=== PATIENT | male | born 1945 | race African-American/Black ===

== ENCOUNTER 2019-10-26 03:29 | Observation (INO) ==
[2019-10-26] MEDS ORDERED: CARDIZEM IV ONE ×2 (03:39→03:55)
[2019-10-26 03:57] LABS: BASO# 0.02 X1000 (0.0-0.2); BASO% 0.2 % (0.0-0.8); EOS# 0.18 X1000 (0.0-0.7); EOS% 1.9 % (0.0-10.0); HEMATOCRIT 47.5 % (42.0-52.0); HEMOGLOBIN 15.3 g/dL (14.0-18.0); LYMPH# 3.94 X1000 (1.2-3.4); LYMPH% 41.7 % (20.5-51.1); MCH 28.7 PG (27-31); MCHC 32.2 g/dL (33-37); MONO# 0.68 X1000 (0.11-0.59); MONO% 7.2 % (1.7-9.3); MPV 9.7 FL (7.4-10.4); NEUT# 4.63 X1000 (1.4-6.5); PLT 277 X1000 (130-400); RBC 5.34 XMIL (4.7-6.1); RDW 14.1 % (11.5-14.5); WBC 9.45 X1000 (4.8-10.8)
--- NOTE | 2019-10-26 04:05 | PROVIDER DOCUMENTATION ---
HPI-General Adult - General Chief Complaint: Shortness of Breath Stated Complaint: copd exac Time Seen by Provider: 10/26/19 03:32 Source: patient, EMS Allergies/Adverse Reactions: Patient Allergies Allergy/AdvReac Type Severity Reaction Status Date / Time No Known Allergies Allergy Verified 01/02/19 11:57 Home Medications: Home Medication List Medication Instructions Recorded Confirmed Last Taken Type Amlodipine Besylate 10 mg PO DAILY 09/30/12 10/26/19 09/20/16 10:15 History Losartan/Hydrochlorothiazide 100-25 mg PO DAILY 09/30/12 10/26/19 09/20/16 10:15 History [Losartan-Hctz 100-25 mg Tab] Fluticasone/Salmeterol [Advair 1 each IH BID PRN 11/27/14 10/26/19 09/20/16 10:15 History 250-50 Diskus] Albuterol Sulfate [Albuterol 8.5 gm INHALATION Q4-6H PRN PRN #1 01/02/19 10/26/19 Unknown Rx Sulfate Hfa] hfa.[email or web address].[email or web address] Levothyroxine [Synthroid] 1 tab PO DAILY 01/02/19 10/26/19 Unknown History Albuterol Sulfate [Proair Hfa] 90 mcg INH PRN PRN 10/26/19 10/26/19 Unknown History Fluticasone/Umeclidin/Vilanter 1 ea INHALATION PRN PRN 10/26/19 10/26/19 Unknown History [Trelegy Ellipta 100-62.5-25] Metoprolol [Lopressor] 50 mg PO BID 10/26/19 10/26/19 Unknown History Nebivolol [Bystolic] 5 mg PO DAILY 10/26/19 10/26/19 Unknown History Rivaroxaban [Xarelto] 10 mg PO DAILY 10/26/19 10/26/19 Unknown History - History of Present Illness -Gen Adult Nature of Presenting Problems: 74 y/o M presents to the ED with EMS complaining of dyspnea. States he awoke suddenly and felt like he could not breathe. Since the onset has had a mild cough, no chest pain, no recent illness. Give [address] Review of Systems - Adult - REVIEW OF SYSTEMS - ADULT ROS:: limited per condition Constitutional: denies: chills, fever Cardiovascular: denies: chest pain Respiratory: reports: cough, shortness of breath. denies: chronic cough, excessive sputum production Musculoskeletal: denies: back pain All Other Systems: Reviewed and Negative Past History - Adult - PAST MEDICAL HISTORY-ADULT Review of Records: reports: Old Records Reviewed, Nursing Assessment Review, Medications Reviewed, Social history reviewed & non-contributory. Major Childhood Illnesses: reports: denies history Cardiovascular: reports: HTN, hyperlipidemia Respiratory: reports: denies history Gastrointestinal: reports: denies history Obstetrical/Gynecological: reports: denies history Genitourinary: reports: other (BPH) Musculoskeletal: reports: denies history Neurological: reports: denies history Endocrine/Immune: reports: thyroid disorder (goiter) Other Conditions: reports: other (frequent epistaxis) - PRIOR SURGERIES/PROCEDURES Surgical/Procedure History: reports: appendectomy, other (thyroidectomy) - IMMUNIZATION STATUS Childhood Immunizations: See Nurse Assessment Flu Vaccine: See Nurse Assessment - FAMILY HISTORY Family History: reviewed, not pertinent Physical Exam-General - PHYSICAL EXAM-ADULT Initial Vital Signs Reviewed: Yes - CONSTITUTIONAL General Appearance: alert, severe distress - EYES Eyes: PERRL/EOMI - HEAD, EARS, NOSE, MOUTH & THROAT HENMT: normocephalic/atraumatic, moist mucous membranes, normal ENT inspection - NECK Neck: non-tender, full range of motion, supple - RESPIRATORY Respiratory: chest non-tender, rales (BL in all medina) - CARDIOVASCULAR Cardiovascular: no edema, JVD, tachycardia, irregularly irregular - GASTROINTESTINAL (ABDOMEN) Abdominal Exam: non tender, soft - MUSCULOSKELETAL Back Exam: normal inspection, no CVA tenderness, no vertebral tenderness Extremity: non-tender, normal gait, no pedal edema - SKIN Integumentary: normal color, normal turgor, warm/dry - NEUROLOGIC Neurologic: grossly normal, no motor/sensory deficits - PSYCHIATRIC Psych/Mental Status: normal mood/affect, normal thought content, normal thought process, oriented x 3 Progress - PLAN OF CARE/RESULTS Progress/Plan/Lab Results: Vital Signs - 8 hr 10/26/19 03:39 Temperature 98.0 F Pulse Rate 172 H Respiratory Rate 35 H Blood Pressure 193/95 O2 Sat by Pulse Oximetry 98 Laboratory Results - last 24 hr 10/26/19 03:43 WBC 9.45 RBC 5.34 Hgb 15.3 Hct 47.5 MCV 89.0 MCH 28.7 MCHC 32.2 L RDW Std Deviation 14.1 Plt Count 277 MPV 9.7 Immature Gran % (Auto) 0.0 Neut % (Auto) 49.0 Lymph % (Auto) 41.7 Dent % (Auto) 7.2 Eos % (Auto) 1.9 Baso % (Auto) 0.2 Immature Gran # (Auto) 0.00 Neut # (Auto) 4.63 Lymph # (Auto) 3.94 H Dent # (Auto) 0.68 H Eos # (Auto) 0.18 Baso # (Auto) 0.02 Orders Category Date Time Status IV Insertion ORDERED Care 10/26/19 03:39 Completed cxr [CHEST-1 VIEW] [RAD] Stat Exams 10/26/19 03:39 Ordered BASIC METABOLIC PANEL [CHEM] Stat Lab 10/26/19 03:43 Received CBC WITH DIFF [HEME] Stat Lab 10/26/19 03:43 Completed PRO B-NATRIURETIC PEPTIDE Stat Lab 10/26/19 03:43 Received TROPONIN T HIGH SENSITIVITY Stat Lab 10/26/19 03:43 Received Diltiazem [Cardizem] Med 10/26/19 03:39 Discontinued 25 mg IV NOW ONE Diltiazem [Cardizem] Med 10/26/19 03:55 Discontinued 25 mg IV NOW ONE EKG [EKG] Stat Ther 10/26/19 03:39 Ordered severe dyspnea with markedly accelerated afib no history of afib or CHF. 100% pulse ox on NRB but continues to be distressed. Treated with diltizem and started on bi-pap with improvement in distress and wob and reduction in HR from 180s to 140s. BP remains stable. Additional dilitizem given and HR reduced to 90's. Will further evaluate for causes including but not limited to ACS, new onset afib, new onset CHF, electrolyte imbalance. Result Diagrams: 10/26/19 03:43 10/26/19 03:43 - REASSESSMENT Reassessment #1 Status: improving (HR improved and dyspnea improved with diltiazem and bi-pap. Labs unremarkable. Symptoms likely due to new onset Afib with new onset CHF. Will admit for further evaluation and treatment. Discussed case with Dr. Tigre rendon, hospitalist, who will see and admit pt.) - EKG 1 Time of EKG reading by physician:: 03:38 EKG Read and Signed by:: Emeli Leonardo EKG Interpretation (*Must complete 3 of following elements*): Abnormal (Atrial fibrillation, rate 174, no acute st changes) - XRAY 1 XRAY Study: Chest Impression: Abnormal (Moderate pulmonary edema, no infiltate, no ptx) Departure - Departure Date of Disposition Decision: 10/26/19 Time of Disposition Decision: 05:02 DIAGNOSIS: New onset a-fib, New onset of congestive heart failure Disposition: ADMITTED INPATIENT 09 Certified Medical Emergency: Emergent Condition: Serious Referrals and Follow-Ups: Jl Cano MD [Primary Care Provider] - - Critical Care Note This patient required my direct & personal management of CC.: Yes Total Time (mins): 45 Critical Care Statement: This patient required my direct personal management to treat or rule out processes, the absence of which, could potentiallly result in sudden, clinically significant life or limb threatening deterioration. Attestation - Physician/ CHRISTOPH Attestation Patient care was provided by Advanced Practice Provider:: No The physician spent face to face time with patient:: Yes Advanced Practice Provider documentation review:: Supervising physician onsite and consulted in the evaluation and care of this patient. The physician did have a face to face encounter with the patient.
[2019-10-26 04:17] LABS: AGAP 13; BUN 22 mg/dL (8-22); CALCIUM 8.9 mg/dL (8.8-10.2); CHLORIDE 104 mmol/L (98-107); COSMO 295; CREATININE 1.1 mg/dL (0.7-1.2); ESTIMATED GFR > 60; GLUCOSE 158 mg/dL (70-104); POTASSIUM 3.3 mmol/L (3.5-5.1); SODIUM 145 mmol/L (136-145); TCO2 28 mmol/L (25-35)
[2019-10-26] MEDS ORDERED: LASIX IV ONE ×2 (05:21→05:42)
[2019-10-26] MEDS ORDERED: LASIX ONE (05:48)
--- NOTE | 2019-10-26 05:51 | EKG Report ---
Test Performed on : 10/26/2019 03:38:31 AM Test Reason : dyspnea Blood Pressure : / mmHG Vent. Rate : 174 BPM Atrial Rate : 220 BPM P-R Int : 000 ms QRS Dur : 080 ms QT Int : 264 ms P-R-T Axes : 000 -35 119 degrees QTc Int : 449 ms Atrial fibrillation. with rapid ventricular response. Left axis deviation Moderate voltage criteria for LVH, may be normal variant ST & T wave abnormality, consider anterolateral ischemia Abnormal ECG When compared with ECG of 23-JAN-2019 11:24, Significant changes have occurred Unconfirmed Result
[2019-10-26] MEDS ORDERED: KLOR-CON PO ONE (05:53)
--- NOTE | 2019-10-26 06:05 | HISTORY AND PHYSICAL ---
ADDENDUM: Mr. Rafael Eller is a patient with COPD, hypertension, atrial fibrillation, and hypothyroidism, who comes in complaining of sudden shortness of breath waking them while asleep. He said over the last few days he has been having dyspnea on exertion with mild lower extremity swelling. He was brought into the ER, and it was noted that his heart rate was greater than 140. He was given some breathing treatments on route. He was then given a total of 50 mg of IV push Cardizem which brought his rate down to the 80s now. He is now back down from atrial fibrillation RVR down to normal sinus rhythm. He feels better. He was put on BiPAP too. His chest film showed slight increased vascular markings. We have given him 40 mg of Lasix now. He will continue with Cardizem 60 mg q.6 which could later be switched to either Cardizem 180 or 240 mg daily at the discretion of the rounding physician or key account coordinator. This will also replace amlodipine which he has been taking. He has had an echocardiogram done in July of last year, and it showed an EF of 55% with mild LVH and pulmonary pressures of 40 mmHg. The patient will continue with Lasix 20 mg q.12 breathing treatments. Also, continue with beta blockers which he takes and Xarelto. Consult Dr. Rojas to see the patient. A TSH and magnesium have been ordered and needs to be followed. O2 administration will be given. Repeat BMP and chest film PA and lateral in the morning tomorrow. cc: Biju Lai MD
[2019-10-26] MEDS: ATROVENT NEB INH SCH ×4 (06:28→22:43)
[2019-10-26] MEDS: XOPENEX NEB INH SCH ×4 (06:28→22:42)
[2019-10-26] MEDS ORDERED: NS NEB INH SCH (06:30)
--- NOTE | 2019-10-26 06:34 | Diag Imaging Result Doc PS360 ---
CHEST-1 VIEW - 10/26/2019 INDICATION: dyspnea COMPARISON: 07/01/2019 FINDINGS: Stable left hemidiaphragm elevation with some adjacent atelectasis. Otherwise no significant infiltrates. Heart size is normal. No pneumothorax or pleural effusion. IMPRESSION: No acute disease or change from prior. Electronically signed by Oli Espinosa 10/26/2019 6:31 AM
[2019-10-26] MEDS ORDERED: ZOFRAN IV PRN (07:47)
[2019-10-26] MEDS ORDERED: TYLENOL PO PRN (07:47)
[2019-10-26] MEDS ORDERED: CARDIZEM PO SCH (08:00)
[2019-10-26] MEDS: TOPROL XL PO SCH (08:45)
--- NOTE | 2019-10-26 08:55 | HISTORY AND PHYSICAL ---
PRIMARY CARE PROVIDER: Jl Cano MD DIRECTOR OF HEALTHCARE SYSTEMS: Jad Rojas MD CHIEF COMPLAINT: Shortness of breath. HISTORY OF PRESENT ILLNESS: Mr. Eller is a 74-year-old male with a past medical history of COPD, hypertension, hyperlipidemia, atrial fibrillation, hypothyroidism, obstructive sleep apnea, and anxiety. The patient presented to the ER after complaining of a sudden onset of shortness of breath, stating it woke him up from a sleep. He complains that over the last few days that he has been having some exertional dyspnea and some mild lower extremity swelling. He stated that he has not had a cough until after he woke up this morning with his shortness of breath episode. He denies any recent illnesses, upper respiratory infection, pneumonia, or being around anyone who is sick. He denies any fever, body aches, or chills. He denies any dizziness, lightheadedness, headache, chest pain, palpitations. He denies any abdominal pain or distention. He denies any nausea, vomiting, or diarrhea. He states he does not have any known hematochezia or melena, but does not regularly look at his stools. He denies any dysuria, urinary frequency, or decreased urine output. He does have some trace edema noted in bilateral lower extremities, but other than this he did not complain of any other pain in his extremities. The patient states he currently does take metoprolol succinate extended release 100 mg once daily for his atrial fibrillation and does take Xarelto for anticoagulation. He did have an echocardiogram and stress test done in July. Echocardiogram did show an EF of 55% with mild LVH and pulmonary pressures of 40. His stress test was negative, but he was noted to have a few runs of atrial fibrillation during his stress test. Upon arrival to the ER, he was placed on BiPAP. Unfortunately, I do not know what his room air saturation was on the scene at the time of EMS arrival. His first documented oxygen saturation at our facility was 98% on a nonrebreather. He was noted to have a heart rate of 172, respirations 35, blood pressure was 193/95 with a MAP of 104. EKG did show atrial fibrillation with rapid ventricular response at a rate of 174. In the ER, he was given 2 IV doses of Cardizem for a total of 50 mg. At this time, his heart rate has improved. It is 80 and a sinus rhythm. The patient did have a brief episode during the time of my examination where his heart rate jumped up to 150. This was atrial fibrillation, though he did quickly convert back to a sinus rhythm. He has been able to be removed off BiPAP. We have placed him back on nasal cannula. The patient is complaining of feeling like something is stuck in his throat, though his posterior pharynx does not appear to have any acute abnormalities. There is no erythema noted. There is no overt JVD noted either. The patient did have some very slight crackles noted in bilateral bases, and he did have expiratory wheezing present. He did receive a breathing treatment en route. We will perform another nebulizer treatment, but we will use Xopenex and Atrovent. Chest x-ray did show possible increased vascular markings. He will be placed in the PVC unit for further treatment and evaluation of his atrial fibrillation, COPD, and acute congestive heart failure. PAST MEDICAL HISTORY: 1. Hypertension. 2. Hyperlipidemia. 3. COPD. 4. Anxiety. 5. Prostate problems. 6. Obstructive sleep apnea with CPAP nightly. 7. Atrial fibrillation. 8. History of thyroidectomy secondary to a goiter [place] [address] Edge. PAST SURGICAL HISTORY: 1. Appendectomy. 2. Prostate surgery. 3. Thyroidectomy. SOCIAL HISTORY: The patient is a former smoker. He did start smoking at age 15. He quit smoking 20 years ago. There is no known alcohol or illicit drug use. He is . His was present at bedside. FAMILY HISTORY: Positive for his mother having history of breast cancer. To his knowledge his father did not have any medical issues. He does have 1 sister who has a history of lupus and diabetes mellitus. He has a brother who has diabetes mellitus as well. He had another brother who has had leg amputation. ALLERGIES: Patient has no known allergies. HOME MEDICATIONS: 1. Albuterol HFA inhaler 1 to 2 puffs every 4-6 hours p.r.n. as needed. 2. Amlodipine 10 mg p.o. daily. 3. Trilogy Ellipta 100/62.5/25 one puff inhaled daily. 4. Synthroid 125 mcg p.o. daily. 5. Losartan/hydrochlorothiazide 100/25 mg tablet once daily. 6. Toprol-XL 100 mg p.o. daily. 7. Xarelto 10 mg p.o. daily. DIAGNOSTIC DATA: White blood cell count is 9450, hemoglobin 15.3, hematocrit 47.5, platelet count is 277,000. Sodium 145, potassium 3.3, chloride 104, serum bicarbonate 28, BUN 22, creatinine 1.1 with GFR greater than 60, glucose 158, calcium 8.9, magnesium 2. Troponin T high sensitivity 13. ProBNP 60. EKG did show atrial fibrillation with RVR at a rate of 172. Unfortunately, because the patient was in respiratory distress upon arrival, there is quite a bit of artifact on the EKG. We are going to repeat this this morning. The patient has converted to a sinus rhythm per the bedside monitor Chest x-ray did show possibility of increased vascular markings. We are awaiting radiologist's impression. We will repeat a BMP and a chest 2 view later on today. PHYSICAL EXAMINATION: VITAL SIGNS: Temperature 98 degrees, heart rate 85, respirations 17, blood pressure 133/70, oxygen saturation is 96% per nasal cannula at 4 liters. GENERAL: Mr. Eller is a pleasant 74-year-old male. He was resting in the ER stretcher. He was in no acute distress. He was awake and alert, able to answer questions appropriately. HEENT: Head is atraumatic, normocephalic. Pupils are equal, round, reactive to light, were 3 mm bilaterally and brisk. Oral mucosa is moist. Oropharynx is clear. NECK: Supple. Trachea midline. No overt JVD noted. CARDIOVASCULAR: Patient has S1-S2 present. No murmurs, gallops, rubs appreciated with a regular rate and rhythm. PULMONARY: Patient has symmetrical chest expansion bilaterally. Lung sounds in bilateral lung bases, there were some slight crackles noted, though he did have expiratory wheezing noted throughout all other lung medina. ABDOMEN: Soft. Does not appear to be distended. The patient does have a slightly protuberant abdomen noted. He was nontender upon palpation. Bowel sounds are present in all 4 quadrants. EXTREMITIES: No cyanosis noted. The patient did have some trace edema present in bilateral lower extremities, though pulse, motor, and sensory were intact in all extremities. Radial pulses were 2+ bilaterally. Pedal pulses were 1+ bilaterally. INTEGUMENTARY: The patient's skin color is normal for his race. It is dry and intact. NEUROLOGICAL: Patient is alert and oriented to person, place, time, and situation. He is able move all extremities. There are no focal neurological deficits noted. ASSESSMENT AND PLAN: 1. Atrial fibrillation with rapid ventricular response. The patient was given 2 separate doses of 25 mg intravenous push in the emergency room. After that he did convert to a sinus rhythm. He has only briefly had 1 further episode of atrial fibrillation where his heart rate did briefly jump up to 150, though he did convert back to a sinus rhythm. We will continue his Toprol-XL 100 mg by mouth daily, as well as we are going to add on Cardizem 60 mg by mouth every [address] him on PVC for closer monitoring at this time in case he does convert back to atrial fibrillation with rapid ventricular rate, for which he may require a Cardizem drip. We will continue with a series of cardiac enzymes. We will repeat EKG this morning. We placed him on a heart healthy diet. We will order a TSH as well. We have placed a consult with Dr. Rojas with Cardiology. We will await their evaluation and further recommendations for management. 2. Acute congestive heart failure. The patient does not have a previous history of this. This could be secondary to his atrial fibrillation with rapid ventricular rate. This does appear to be mild. We will give the patient 40 mg of Lasix intravenously. He did receive 40 mg of Lasix in the emergency room. We will continue with Lasix 20 mg intravenously every 12 hours. We will do strict intake and output. We will continue to monitor closely and await Cardiology's evaluation and recommendations. 3. Chronic obstructive pulmonary disease. We will continue with scheduled DuoNeb treatments, incentive spirometry. The patient has been taken off the BiPAP and has been placed on nasal cannula at 4 liters. He is handling his nasal cannula well. He is not in any respiratory distress. Oxygen saturations are within normal limits. We will continue to monitor. 4. Hypertension. We will continue with medications as mentioned above of Cardizem and metoprolol. We have held his Norvasc and losartan/hydrochlorothiazide at this time. 5. Mild hypokalemia. His potassium was 3.3, though he will be receiving Lasix. We will give him 40 mg of potassium chloride extended release by mouth. We will recheck a BMP this afternoon. 6. Hypothyroidism. We will continue his levothyroxine. 7. Deep vein thrombosis prophylaxis will be covered by his Xarelto, for which he takes for his atrial fibrillation. 8. The patient has been placed on PVC. He will be on continuous cardiac telemetry and pulse oximetry. We will do frequent vital signs. We are awaiting hemoglobin A1c. His glucose was slightly elevated, PT with INR, PTT, and series of cardiac enzymes. We also will await results of repeat BMP and chest x-ray later on today. Further orders and recommendations pending hospital course, diagnostic studies, and physician evaluation. Dictated by PAOLO Hardwick for Biju Lai MD cc: Biju Lai MD
[2019-10-26] MEDS ORDERED: XARELTO PO SCH (09:00)
--- NOTE | 2019-10-26 09:01 | EKG Report ---
Test Performed on : 10/26/2019 08:51:38 AM Test Reason : A-Fib w/RVR,repeat EKG Blood Pressure : / mmHG Vent. Rate : 089 BPM Atrial Rate : 089 BPM P-R Int : 128 ms QRS Dur : 092 ms QT Int : 384 ms P-R-T Axes : 058 -39 111 degrees QTc Int : 467 ms Normal sinus rhythm. Left axis deviation Incomplete right bundle branch block Left ventricular hypertrophy with repolarization abnormality Abnormal ECG When compared with ECG of 26-OCT-2019 03:38, (Unconfirmed) Significant changes have occurred Confirmed by Fabrice Jeronimo MD ([id number]) on 10/26/2019 5:31:29 PM
[2019-10-26 09:28] LABS: INR 0.92; PROTIME 12.4 Seconds (11.0-16.0)
[2019-10-26 09:29] LABS: PTT 25.1 Seconds (22.3-41.8)
--- NOTE | 2019-10-26 09:58 | CARDIOLOGY CONSULTATION ---
DATE: 10/26/2019 CHIEF COMPLAINT: Shortness of breath. HISTORY OF PRESENT ILLNESS: Mr. Eller is a 74-year-old, black male with a past medical history of COPD, hypertension, hyperlipidemia, atrial fibrillation. He normally sees Dr. Rojas, with the with last office visit in 08/2019. The patient apparently awoke very early this morning with a severe case of shortness of breath. He felt well prior to this day, other than some mild sore throat. The patient presented to the ER and was found to be in rapid atrial fibrillation. He has a history of atrial fibrillation, and was on Xarelto 20 mg daily. He has subsequently, since admission, converted over to sinus rhythm. The patient denies any pain complaints. PAST MEDICAL HISTORY: Significant for: 1. Paroxysmal atrial fibrillation, maintained on 20 mg of Xarelto, as well as metoprolol at home. 2. COPD. 3. Hyperlipidemia. 4. Hypertension. 5. PVCs. 6. Hypothyroidism. 7. Obstructive sleep apnea. SOCIAL HISTORY: Previous smoker, quit smoking around 20 years ago. is present in the room. No present alcohol use. FAMILY HISTORY: Mother with a history of breast cancer. Not aware of any health issues in his father. Sister with a history of lupus and diabetes. REVIEW OF SYSTEMS: A 10-system review of systems is negative, except for those things mentioned in the HPI. PHYSICAL EXAMINATION: Vital Signs: The patient is afebrile. Heart rate is 88. He is in sinus rhythm presently. His blood pressure is 158/76. General: He is in no acute distress. HEENT: Oropharynx is moist. Poor dentition. Eye examination shows pink conjunctivae, white sclerae. Neck: No obvious thyromegaly or thyroid tenderness. Cardiovascular: He sounds to be in a regular rate and rhythm. He has no obvious murmurs. He has no S3. He has no lower extremity edema. Chest: Mild expiatory wheezes somewhat diffusely. He has no increased work of breathing. Abdomen: Soft, nontender, nondistended. He has no obvious organomegaly. Skin: Warm and dry throughout without any rashes. Neurological: He is moving all extremities well. He has no lateralizing deficits. PERTINENT DATA: He had an EKG on presentation on 10/26/2019 at 3:38 that shows rapid atrial fibrillation, rate of 174 beats per minute. Subsequent EKG checked on 10/26/2019 at 8:51 shows sinus rhythm, nonspecific ST-T changes, rate of 89 beats per minute. Chest x-ray shows no evidence of acute findings. He has a chronic stable left hemidiaphragm elevation with some adjacent atelectasis. Nuclear scan from 07/2019 shows an unremarkable walking Lexiscan, normal post-stress perfusion, normal ejection fraction of 63%. Echocardiogram done at that same time shows an EF of 52%. No evidence of diastolic dysfunction. His lab data shows a white count of 9.4, hematocrit of 47, platelet count of 277,000. His sodium is 145, potassium 3.3, BUN 22, creatinine is 1.1. TSH 5.82. His troponin was 13. ProBNP was 60. ASSESSMENT: Mr. Eller is a 74-year-old male who has a history of paroxysmal atrial fibrillation, who presented in atrial fibrillation. PLAN: Will replete his potassium if that has not already been done. We will place him on flecainide 100 mg b.i.d. I would continue him on the metoprolol, discontinue diltiazem, and place him back on his home amlodipine. His second troponin should be back hopefully soon. If this is stable from previous, then he can likely be discharged home later today from a cardiovascular standpoint. He had an echocardiogram and a myocardial perfusion scan performed recently. He does not have to have those repeated on this visit. cc: Peter Covington MD
[2019-10-26 10:08] LABS: CK-MB 6.59 ng/mL (0.0-5.0)
[2019-10-26 10:24] LABS: HEMOGLOBIN A1C 5.7 % (4.8-6.0)
[2019-10-26 12:49] LABS: CK INDEX 3.1 (0.0-2.5); CK-MB 6.6 ng/mL (0.0-5.0)
[2019-10-26 12:57] LABS: AGAP 13; BUN 22 mg/dL (8-22); CALCIUM 8.6 mg/dL (8.8-10.2); CHLORIDE 103 mmol/L (98-107); COSMO 292; CREATININE 1.1 mg/dL (0.7-1.2); ESTIMATED GFR > 60; GLUCOSE 131 mg/dL (70-104); POTASSIUM 3.4 mmol/L (3.5-5.1); SODIUM 144 mmol/L (136-145); TCO2 28 mmol/L (25-35)
--- NOTE | 2019-10-26 13:31 | Diag Imaging Result Doc PS360 ---
CHEST-2 VIEWS - 10/26/2019 1:26 PM INDICATION: COPD,Dyspnea,F/U on increased vasc. markings COMPARISON: 3:58 AM FINDINGS: Stable left hemidiaphragm elevation with adjacent atelectasis. No new infiltrates. IMPRESSION: No change from prior. Electronically signed by Oli Espinosa 10/26/2019 1:28 PM
[2019-10-26] MEDS ORDERED: CHLORASEPTIC SPRAY MT PRN (16:30)
--- NOTE | 2019-10-26 16:52 | DISCHARGE SUMMARY ---
ADMISSION DATE: 10/26/2019 DISCHARGE DATE: 10/26/2019 PRIMARY CARE PHYSICIAN: Dr. Jl Cano GAME AUTHOR: Jad Rojas MD HISTORY OF PRESENT ILLNESS: This is a 74-year-old who presented with shortness of breath. Past medical history of COPD, hypertension, hyperlipidemia, and atrial fibrillation, hypothyroidism, obstructive sleep apnea, anxiety. The patient presented to the emergency room after complaining of sudden onset of shortness of breath stating it woke him up from sleep. Complains that over the last few days he has been having some exertional dyspnea and some mild lower extremity swelling. Stated he has not had a cough until he woke up this morning and had some shortness of breath. Denies any recent illness. No upper respiratory tract infection. On arrival to the emergency room, he was placed on BiPAP and he was saturating above 98% on non-rebreather. Blood pressure was 193/95. PAST MEDICAL HISTORY: Reviewed again: 1. Hypertension. 2. Hyperlipidemia. 3. COPD. 4. Anxiety. 5. Prostate benign prostatic hypertrophy. 6. Obstructive sleep apnea wears CPAP at night. 7. Atrial fibrillation. 8. History of hypothyroidism secondary to goiter, surgery performed in [address] Edge. PAST SURGICAL HISTORY: 1. Appendectomy. 2. Prostate surgery. 3. Thyroidectomy. HOSPITAL COURSE: Admission diagnosis atrial fibrillation with rapid ventricular rate. Had 2 separate doses of metoprolol and he did convert into sinus rhythm, added Cardizem 60 mg by mouth q.6 hours and he was moved to the [facility]. Dr. Peter Covington had evaluated him. Troponin was unremarkable and they wanted to start him on flecainide 100 mg b.i.d. Continue his metoprolol. Discontinue diazepam and place him back on his amlodipine. His repeat troponin was 19, so plan to tentatively discharge him home today. He is on Norvasc 10 mg a day, Tambocor which is flecainide 100 mg b.i.d. and Toprol 100 mg p.o. daily, Xarelto 20 mg daily. cc: Mathew Carreon MD
[2019-10-26] MEDS: LASIX IV SCH (17:05)
[2019-10-26] MEDS: TAMBOCOR PO SCH (20:48)
[2019-10-27] MEDS: ATROVENT NEB INH SCH ×3 (04:33→15:33)
[2019-10-27] MEDS: XOPENEX NEB INH SCH ×3 (04:33→15:33)
[2019-10-27] MEDS: LASIX IV SCH (05:57)
[2019-10-27] MEDS: SYNTHROID PO SCH ×2 (05:58→06:34)
[2019-10-27 06:13] LABS: BASO# 0.02 X1000 (0.0-0.2); BASO% 0.2 % (0.0-0.8); EOS# 0.16 X1000 (0.0-0.7); EOS% 1.7 % (0.0-10.0); HEMATOCRIT 41.4 % (42.0-52.0); HEMOGLOBIN 13.1 g/dL (14.0-18.0); IMM GRAN# 0.02 X1000 (0.0-0.04); IMM GRAN% 0.2 % (0.0-0.5); LYMPH# 1.87 X1000 (1.2-3.4); MCH 28.7 PG (27-31); MCHC 31.6 g/dL (33-37); MCV 90.8 FL (81-99); MONO# 0.92 X1000 (0.11-0.59); MONO% 9.9 % (1.7-9.3); MPV 10.4 FL (7.4-10.4); NEUT# 6.35 X1000 (1.4-6.5); PLT 212 X1000 (130-400); RBC 4.56 XMIL (4.7-6.1); RDW 14.4 % (11.5-14.5); WBC 9.34 X1000 (4.8-10.8)
[2019-10-27 07:08] LABS: AGAP 10; BUN 18 mg/dL (8-22); CALCIUM 9.1 mg/dL (8.8-10.2); CHLORIDE 105 mmol/L (98-107); COSMO 289; CREATININE 1.1 mg/dL (0.7-1.2); ESTIMATED GFR > 60; GLUCOSE 104 mg/dL (70-104); MAGNESIUM 2.1 mg/dL (1.5-2.7); POTASSIUM 3.4 mmol/L (3.5-5.1); SODIUM 144 mmol/L (136-145); TCO2 29 mmol/L (25-35)
--- NOTE | 2019-10-27 07:39 | PROGRESS NOTE ---
DATE: 10/27/2019 SUBJECTIVE: Mr. Eller had a pretty good night. He denies any pain. No chest pain. He said he would like to get a shower and get up. OBJECTIVE: Vital Signs: He remains afebrile, temp 98.5 degrees, pulse 70, respirations 16, blood pressure 141/59. HEENT: Pupils are equal and round. Lungs: Clear in all lung [place]. Cardiovascular: Regular rhythm and rate without murmur or S3. Urine output is 2200 mL. ASSESSMENT AND PLAN: Paroxysmal atrial fibrillation. Presented in atrial fibrillation. Will continue him on metoprolol. Discontinue diltiazem, and placed him back on his home amlodipine, and plan is to continue flecainide. He had an uneventful night. His chest x-ray from yesterday is stable, left hemidiaphragm elevation, adjacent atelectasis, no new infiltrate. Hope to send him home today. Will get him up and let him get a shower. He was getting Lasix 20 mg intravenously every 12 hours. He is on the flecainide 100 mg twice daily at home when he came in. He was on amlodipine 10 mg a day, Tambocor 100 mg twice daily. He was on Trelegy, which is fluticasone, Umeclidinium and vilanterol (it is called Trelegy Ellipta) 100/62.01/24 one inhalation as needed, Synthroid 1 tablet a day, and he was getting losartan/hydrochlorothiazide, and he is on Xarelto 10 mg a day, metoprolol ER 100 mg daily, so hopefully we can go home today. cc: Mathew Carreon MD
[2019-10-27] MEDS: TAMBOCOR PO SCH ×2 (07:50→08:27)
[2019-10-27] MEDS: NORVASC PO SCH ×2 (07:50→08:26)
[2019-10-27] MEDS: XARELTO PO SCH ×2 (07:50→08:27)
[2019-10-27] MEDS: TOPROL XL PO SCH ×2 (07:50→08:27)
[2019-10-27 11:24] VITALS: BP 154/77
--- NOTE | 2019-10-27 14:34 | CARDIOLOGY PROGRESS NOTE ---
DATE: 10/27/2019 SUBJECTIVE: Mr. Eller continues to have a significant cough. He has not had any more bouts of atrial fibrillation. He denies any palpitations. OBJECTIVE: Vital Signs: He is afebrile, heart rate is 73, blood pressure 154/77. General: He is in no acute distress. Cardiovascular: He sounds to be in a regular rate and rhythm. He has no obvious murmurs. He has no S3. He has no lower extremity edema. Chest: Actually sounds relatively clear. He has no increased work of breathing. Abdomen: Soft, nontender. PERTINENT DATA: His sodium is 144, potassium is 3.4, his BUN and creatinine are 18 and 1.1 respectively. His proBNP yesterday was 60. His troponin initially was 13, trended up to 20, and last check was 19. ASSESSMENT: Mr. Eller is a 74-year-old male with paroxysmal atrial fibrillation, who came in an atrial fibrillation episode yesterday. PLAN: We added in flecainide 100 b.i.d. to his regimen. He has maintained sinus rhythm. He has had essentially an unremarkable ischemia evaluation at the end of last year. His ejection fraction is normal. From my standpoint, he can be discharged home to follow up with his primary iron carrier. He is on Xarelto 20 mg daily. cc: Peter Covington MD
--- NOTE | 2019-10-27 16:15 | DISCHARGE SUMMARY ---
ADMISSION DATE: 10/26/2019 DISCHARGE DATE: 10/27/2019 HISTORY: He is a patient of Dr. Jl Cano, followed by Dr. Ricardo Rojas. Came in with shortness of breath. A 74-year-old black male with a past medical history of COPD, hypertension, hyperlipidemia, atrial fibrillation, hypothyroidism, obstructive sleep apnea, and anxiety. The patient came to the emergency room complaining of sudden onset of shortness of breath that woke him up from his sleep. Complained that over the last few days he has been having some exertional dyspnea and some mild lower extremity swelling. He stated that he has not had a cough until he woke up this morning. He was short of breath. Denies any recent illness, upper respiratory infection, pneumonia, or being around anyone who was sick. He denies any fever, body aches, or chills. Denied any dizziness, lightheadedness. He did say that he had some tightness around his lower abdomen and his throat felt irritated and he was coughing. The patient states that he currently takes metoprolol extended release 100 mg once a day for his atrial fibrillation and he does take Xarelto for anticoagulation. He did have an echocardiogram and a stress test in July. Echocardiogram did show an ejection fraction of 55%, mild LVH, and pulmonary pressures of 40. His stress test was negative, but he was noted to have a few runs of atrial fibrillation during the stress test. Upon arrival in the ER, he was placed on BiPAP and he was moved up to [facility]. His heart rate was 172, respirations 35, blood pressure 193/95 with a MAP of 104. EKG showed atrial fibrillation with rapid ventricular rate of 174. Given 2 IV doses of Cardizem for a total of 50 mg. His heart rate improved and came down to the 80s and then converted to sinus rhythm. Had a brief episode where it jumped up to 150 and then quickly converted back to sinus rhythm. PAST MEDICAL HISTORY: Reviewed again. 1. Hypertension. 2. Hyperlipidemia. 3. COPD. 4. Anxiety. 5. Benign prostatic hypertrophy. 6. Obstructive sleep apnea with CPAP. 7. Atrial fibrillation. 8. History of thyroidectomy secondary to goiter, performed [place] [address] Edge. PAST SURGICAL HISTORY: Appendectomy, prostate surgery, and thyroidectomy. ADMISSION DIAGNOSES: 1. Atrial fibrillation with rapid ventricular rate. 2. Underlying congestive heart failure. 3. Pulmonary venous hypertension. HOSPITAL COURSE: Cardiology was asked to see. His chest x-ray on admission, no acute disease, no sign of infiltrates. Dr. Peter Covington evaluated. He has a history of paroxysmal atrial fibrillation, presented with atrial fibrillation. We repleted his potassium, placed him on flecainide 100 mg b.i.d., and continued his metoprolol. Discontinued diltiazem and placed him back on his home amlodipine. His second troponin was unremarkable, so no sign of active ischemia. [place] he could go home on 10/27/2019; cardiology felt he could go home. DISCHARGE MEDICATIONS: So he will go home on Norvasc 10 mg a day, flecainide 100 mg b.i.d. He will take Lasix 40 mg q.a.m., Synthroid 125 mcg daily, Toprol-XL 100 mg daily, Xarelto 20 mg once a day. He has his inhalers, the Ellipta he can use and his albuterol as needed. He was also on Trelegy Ellipta ; continue to use that as before. FOLLOW UP: He will follow up with his primary care and follow up with Cardiology in a couple of weeks. cc: Mathew Carreon MD
== END 2019-10-27 18:03 | disposition home or self-care (01) ==
LOC: SUPCPDRO → ED 03:29 → SUATTDRO 06:35 → 2N 06:35 → INTOOBSV 06:35
PROVIDERS: ATTEND Emergency Medicine